=== PATIENT | male | born 1960 | race Caucasian/White ===

== ENCOUNTER 2023-12-28 22:25 | Inpatient (IN) | payer BC, SELFPAY ==
[2023-12-28 16:52] VITALS: BP 182/93
[2023-12-28 17:06] LABS: % Basophils 0.9 % (0-2); % Eosinophils 2.7 % (0-6); % Immature Granulocytes 0.2 % (0-0.5); % Lymphocytes 26.4 % (20.5-51.1); % Monocytes 9.6 % (1.7-9.3); % Neutrophils 60.2 % (42.2-75.2); Absolute Basophils 0.1 10^3/uL (0-0.2); Absolute Eosinophils 0.2 10^3/uL (0-0.7); Absolute Lymphocytes 2.4 10^3/uL (1.2-3.4); Absolute Monocytes 0.9 10^3/uL (0.1-0.6); Absolute Neutrophils 5.4 10^3/uL (1.4-6.5); Hematocrit 45.7 % (39.0-52.0); Hemoglobin 16.7 g/dL (13.0-18.0); Mean Corp Hgb Conc. 36.5 g/dL (33.0-37.0); Mean Corpuscular Hgb 32.1 pg (27.0-31.0); Mean Corpuscular Volume 87.7 fL (80.0-94.0); Mean Platelet Volume 9.1 fL (7.4-10.4); Nucleated Red Blood Cells % 0 % (-); Platelet Count 256 10^3/uL (130-400); Red Blood Cell Count 5.21 10^6/uL (4.70-6.10); Red Cell Dist. Width 12.6 % (11.5-14.5)
[2023-12-28 17:20] LABS: ALT (SGPT) 36 U/L (0-50); AST (SGOT) 23 U/L (17-59); Albumin 4.5 g/dl (3.5-5.0); Alkaline Phosphatase 81 U/L (38-126); Blood Urea Nitrogen 17 mg/dl (9-20); Calcium 9.8 mg/dl (8.4-10.2); Carbon Dioxide 27 mmol/L (22-30); Chloride 103 mmol/L (98-107); Glucose 301 mg/dl (70-99); Potassium 3.6 mmol/L (3.5-5.1); Sodium 141 mmol/L (135-145); Total Bilirubin 0.9 mg/dl (0.2-1.3); Total Protein 7.3 g/dl (6.3-8.2); eGFR > 60.00
[2023-12-28 17:31] LABS: Troponin I < 0.012 ng/ml
[2023-12-28 18:05] LABS: Lipase 365 U/L (23-300)
[2023-12-28 19:18] VITALS: BP 160/83
[2023-12-28] MEDS: NSS 1000 IV (19:21)
--- NOTE | 2023-12-28 19:22 | ED.GENMED ---
History of Present Illness
General
Chief Complaint: Chest Pain
Source: patient
Exam Limitations: none
Time Seen by Provider: 12/28/23 19:00
History of Present Illness
History of Present Illness:
This is a 63 year old male that comes in with multiple complaints. State that on Wednesday he started with this med abd cramping. States that this radiated around to his mid upper back. States that the pain has been constant but the intensity
changes. States that he also has low back pain and chest pain. States that he feels very tired. States that last night he had chills and he has felt occasionally lightheaded. Denies any fever, SOB, nausea, vomiting, diarrhea, headache, dizziness,
urinary burning.
Past History
Past History
ED Past Medical History: GERD, HTN and Other (Kidney stones, Pancreatitis)
ED Past Surgical History: Cholecystectomy, Urological (Removal of Kidney stone) and Other (Parotid mass removed, )
Social History
Tobacco: Former smoker
Alcohol: Occasional
Personal:
Living: with family
Review of Systems
Review of Systems
All Other Systems: ROS reviewed and negative except as documented in HPI and ROS
Constitutional: Reports chills; Denies fever
EENT: Reports no symptoms
Respiratory: Denies cough or trouble breathing
Cardiac: Reports chest pain
ABD/GI: Reports abdominal pain; Denies nausea, vomiting or diarrhea
: Reports no symptoms; Denies dysuria, frequency or urgency
Musculoskeletal: Reports no symptoms
Skin: Reports no symptoms
Neurological: Reports other (Lightheaded); Denies dizzy or headache
Psychiatric: Reports no symptoms
Phy Exam
General Physical Exam
General Presentation: well appearing and no apparent distress
General age: appears stated age
General Skin: warm and dry
General Habitus: normal
General Mental: alert
General Hydration: dry mucous membranes
ENT Exam
ENT Exam: TM's normal, pharynx normal and neck supple
Eye Exam
Eye Exam: EOMI
Cardiovascular Exam
Cardiovascular Exam: regular rate/rhythm, no edema, no murmur and normal peripheral pulses
Pulmonary Exam
Pulmonary Exam: lungs clear, no respiratory distress, no rales, chest non tender, no crackles, no rhonchi, no wheezing and no cough
Gastrointestinal Exam
Gastrointestinal Exam: normal bowel sounds, non tender, soft, no organomegaly, no pulsatile mass and non distended
Musculoskeletal Exam
Musculoskeletal Exam: full ROM and no edema
Skin Exam
Skin Exam: normal color, warm/dry, no rash and no petechia
Psychiatric Exam
Psychiatric Exam: normal mood/affect
Scores
Heart Score for Chest Pain Patients
STEMI patient?: Not applicable
Course
Orders/Labs/Results
Orders:
Orders
12/28/23 16:51
EKG [Electrocardiogram (*1)] Urgent
Reason for Study: Chest Pain
EKG- Treatment ONCE
12/28/23 17:01
CBC/With Diff [Complete Blood Count/With Diff] Urgent
CMP [Comprehensive Metabolic Panel] Urgent
Lipase Urgent
Troponin I Urgent
12/28/23 19:15
CT Abd/pelvis W Iv Cont Urgent
Comment:
Reason For Exam: Mid abd pain and left flank pain
0.9% Sodium Chloride 1000 ml [Nss] 1,000 ml IV BOLUS
12/28/23 19:46
Ketorolac [Toradol] 30 mg IV NOW STA
12/28/23 19:59
Troponin I Urgent
12/28/23 20:02
Urinalysis Reflex To Culture Urgent
Date Specimen was Collected: 12/28/23
Time Specimen was Collected: 20:00
Abnormal Lab Results
12/28/23 12/28/23
17:01 20:02
MCH 32.1 H pg
(27.0-31.0)
Absolute Monos (auto) 0.9 H 10^3/uL
(0.1-0.6)
Monocytes % 9.6 H %
(1.7-9.3)
Glucose 301 H mg/dl
(70-99)
Lipase 365 H U/L
(23-300)
Urine Glucose 3+ A
(Negative)
12/28/23 17:01
12/28/23 17:01
Hyperglycemia, Lipase slightly elevated Troponin <0.012, Urine negative for infection.
Vital Signs
Initial and Last Documented VS:
Initial Vital Signs
Temp Pulse Resp BP Pulse Ox
98.2 F 73 18 182/93 96
12/28/23 16:52 12/28/23 16:52 12/28/23 16:52 12/28/23 16:52 12/28/23 16:52
Last Documented Vital Signs
Temp Pulse Resp BP Pulse Ox
98.2 F 63 12 160/83 96
12/28/23 16:52 12/28/23 19:30 12/28/23 19:30 12/28/23 19:18 12/28/23 19:30
MDM/Problems Addressed
Differential Diagnosis Includes:
Pancreatitis, Renal calculus, UTI
MDM/Problems Addressed:
This is a 63 year old male that come in with c/o abd pain and mid back pain. States that this started on Wednesday and has been constant but the intensity changes. States that he had shaking chill last night and occasionally lightheaded.
Will get labs, CT scan and urine. Will also give IV fluids and then recheck patient blood sugar. States that they are watching his sugar and that he was on Steroids for 10 days which he stopped about 2 weeks ago.
Back into see patient. Explained that the CT also noted Mild pancreatitis. Will admit patient. Hospitalist notified.
Chronic conditions affecting care:
history of Pancreatitis and renal calculus
Acute Exacerbation and/or Progression of Chronic Illness:
Pancreatitis
*Radiology
Radiology exam reviewed: radiology read reviewed (CT-Findings suggesting mild pancreatitis in the appropriate clinical context. )
*Pulse Oximetry
Patient hypoxic: no
*EKG
Interpreted by ED Provider?: Yes
Heart Rate: 67
Rate: normal
Rhythm: sinus
[place]: normal axis
Interval: normal interval
QRS Pattern: normal QRS
Ischemia: no ischemia
*Rubber Stamp Dies Inspector Interpretation
Rate: normal
Heart Rate: 64
Rhythm: sinus
*Critical Care Note
Total Time (30-74mins, 75-104mins- exclusive of procedures): Not Applicable
ED Attending Note
-
Portions of this chart may have been created with voice recognition software.� Occasional wrong word or��sound alike� substitutions may have occurred due to the inherent limitations of voice recognition software.
Discharge Plan
Departure
Patient Disposition: Admit
Date of Disposition: 12/28/23
Time of Disposition: 21:24
Admit to: Med/Surg
Presentation/result/management discussed w/ accepting MD/DO: Hospitalist
Patient with high blood pressure during this ER visit?: Yes
Condition: Good
Covid-19: Not Applicable
Discharge Problem:
Pancreatitis, Abdominal pain
Prescriptions:
No Action
amlodipine-benazepril 1 CAPSULE capsule
1 cap PO DAILY
cetirizine 10 MG tablet
10 mg PO DAILY
polyethylene glycol 3350 17 GRAMS powder in packet
17 grams PO DAILYPRN PRN (Reason: constipation)
omega 3-hgo-qll-fish oil [Fish Oil] 1 EACH capsule
2 ea PO DAILY
Referrals:
NONE,* [Active] -
Interventions
Interventions:
*Risk Screen - Suicide Last Done: 12/28/23 16:52
*General Assessment Last Done: 12/28/23 16:52
*Neglect/Abuse Screening Last Done: 12/28/23 16:52
ED- Fall Risk Assessment Last Done: 12/28/23 19:00
BZ-Msnnbm-Zzqxxztgvv Assessment Last Done: 12/28/23 19:00
ED- Cardiac Assessment Last Done: 12/28/23 19:00
ED- Neurological Assessment Last Done: 12/28/23 19:00
Discharge Date and Time
Print Language: CAPE VERDEAN
[2023-12-28] MEDS: TORADOL 30 MG IV (19:48)
[2023-12-28 20:00] VITALS: BP 160/92
[2023-12-28 20:18] LABS: Urine Albumin Negative (Neg - Trace); Urine Bilirubin Negative (Negative); Urine Character Clear (Clear); Urine Color Yellow; Urine Glucose 3+ (Negative); Urine Ketone Negative (Negative); Urine Leukocyte Negative (Negative); Urine Nitrite Negative (Negative); Urine Occult Blood Negative (Negative); Urine Specific Gravity 1.015 (<1.030); Urine Urobilinogen Negative (Neg - 1+)
[2023-12-28 20:39] LABS: Troponin I < 0.012 ng/ml
[2023-12-28 21:00] VITALS: BP 143/98
[2023-12-28] MEDS: DILAUDID 0.5 MG IV (21:37)
--- NOTE | 2023-12-28 21:42 | HPS.HSE ---
Family Physician
-
Family Physician: Tony Reynoso
Chief Complaint
-
abdominal pain
History of Present Illness
HPI
63M HX Pancreatitis per 2018 CT AP, HX Kidney stones, s/p cholecystectomy seen at ER for abdominal pain:
Evaluation of Abdominal pain:
- started 3 days ago
- crampy in nature and constant
- never pain free but intensity is waxing and waning
- around epigastrium mid upper back
- Denied N/V/D
- ETOH exposure: had total 4 cock tail 3 days in a row before Sat at [employer] , Not a daily drinker
ROS
Denies any fever, SOB, urinary burning.
Medical History
Past Medical History
Past Medical History: Reports HTN and Other (Kidmey stones , Pancreatitis in 2018 )
Past Surgical History: Reports Cholecystectomy and Urological (Kidney stones removal )
Additional Past Surgical History:
Parotid mass removed
Social History
Tobacco: Former Smoker
Alcohol: Occasional
Drug: None
Personal:
Living: With Family
Family History
Family History: Not pertinent
Allergies / Home Medications
Allergies reflects when Allergies were last updated in [employer].
Home Medications with original date entered in [employer]
Allergy/Medication List:
Allergies
Allergy/AdvReac Type Severity Reaction Status Date / Time
levofloxacin [From Levaquin] Allergy Tendonitis Verified 12/28/23 16:51
Home Medications
amlodipine 10 mg-benazepril 20 mg capsule 1 cap PO DAILY 12/28/23
cetirizine 10 mg tablet 10 mg PO DAILY 12/28/23
ketoconazole 2 % shampoo 1 applic topical DAILYPRN PRN scalp/arms 12/28/23
omega 9-ghm-end-fish oil 1,000 mg (120 mg-180 mg) capsule (Fish Oil) 2 cap PO DAILY 12/28/23
tramadol 50 mg tablet 50 mg PO TID PRN mild pain 12/28/23
Review of Systems
-
Constitutional: Reports No Symptoms
EENT: Reports No Symptoms
Respiratory: Reports No Symptoms
Cardiac: Reports No Symptoms
Abdomen/GI: Reports Abdominal Pain; Denies Nausea, Vomiting, Diarrhea or Constipated
: Reports No Symptoms
Musculoskeletal: Reports No Symptoms
Skin: Reports No Symptoms
Neurological: Reports No Symptoms
Endocrine: Reports No Symptoms
Hematologic/Lymphatic: Reports No Symptoms
Psych: Reports No Symptoms
Physical Exam
Vital Signs
Vital Signs
Temp Pulse Resp BP Pulse Ox
98.2 F 63 12 160/83 96
12/28/23 16:52 12/28/23 19:30 12/28/23 19:30 12/28/23 19:18 12/28/23 19:30
Physical Exam
General: Well Developed, Well Nourished and No Apparent Distress
HEENT: NormoCephalic, Moist mucous membranes and Atraumatic
Respiratory: Clear
Cardiac: S1/S2 and Regular Rhythm; No Murmur or Rub
GI: Soft, Non Distended and Normal Bowel Sounds; No Organomegaly
Rectal: Deferred by Provider
Musculoskeletal: No Clubbing, No Cyanosis and No Edema
Skin: No Rash
Neuro: Nonfocal/grossly intact
Laboratory Results
-
12/28/23 17:01
12/28/23 17:01
Laboratory Results
Total Bilirubin 0.9 mg/dl (0.2-1.3) 12/28/23 17:01
AST 23 U/L (17-59) 12/28/23 17:01
ALT 36 U/L (0-50) 12/28/23 17:01
Alkaline Phosphatase 81 U/L (38-126) 12/28/23 17:01
Troponin I < 0.012 ng/ml 12/28/23 19:59
Lipase 365 U/L (23-300) H 12/28/23 17:01
Data Reviewed
-
CT Scan: Report Reviewed by me
Lab Data: Discussed with Physician
Old Records: Reviewed
Impression/Plan
-
Reviewed VS: Afebrile HR 60s 140/80 --> 180/90
Data
nl CBC
unremarkable BMP
BG 301
Unremarkable LFTs
Lipase 365
12/28/23 CT Abd/pelvis W Iv Cont
Diffuse hepatic steatosis.
Mild inflammatory change surrounding the pancreatic head. Findings suggesting mild pancreatitis in the appropriate context.
Gallbladder absent.
The spleen, kidneys, adrenal glands are within normal limits.
02/09/18 CT Abd/pelvis W Iv Cont
light enlargement of the head of the pancreas with stranding of the fat surrounding the head of the pancreas.
CT findings are most compatible with pancreatitis.
No CT evidence of pancreatic mass.
No evidence of focal fluid collection.
Status-post cholecystectomy.
No evidence of bile duct dilation.
No evidence for calcified bile duct calculus.
Diffuse fatty infiltration of the liver.
5-mm enhancing lesion in the superior right lobe of the liver, most likely a small hemangioma.
Last hospitalist admission:
ASSESSMENT & PLAN
Clinical and CT suggestive of acute pancreatitis with equivocal lipase
Idiopathic pancreatitis
HX cholecystectomy
POS ETOH exposure: had total 4 cock tail 3 days in a row before Sat at [employer] , Not a daily drinker
- NPO and LR IVF 200cc/H
- PRN IV Dilaudid and PRN anti emetics
- trend Lipase and LFTs
- held Benazepril
- avoid ETOH
- GI consult
Essential HTN on combo Amlodipine and Benazepril pill
- cont Amlodipine
- add IV Hydralazine PRN
HX GERD
- Empiric IV PPI for now
DVT Px: SCd
Code: Full
Ip MS
[2023-12-28] MEDS: LR 1000 IV (23:12)
[2023-12-28 23:13] VITALS: BP 151/80; BMI 29.3
--- NOTE | 2023-12-28 23:25 | PTCARENOTE ---
Received patient from ED via stretcher. Pt AAOX3. Pox: 96% RA. Patient denies pain at this time. Call thakur within reach. Plan of care ongoing.
[2023-12-29] MEDS: LR 1000 IV ×4 (04:00→18:34)
[2023-12-29] MEDS: DILAUDID 0.5 MG IV ×4 (04:36→22:58)
[2023-12-29 06:00] VITALS: BMI 29.3
[2023-12-29 06:49] LABS: Hematocrit 42.7 % (39.0-52.0); Hemoglobin 14.9 g/dL (13.0-18.0); Mean Corp Hgb Conc. 34.9 g/dL (33.0-37.0); Mean Corpuscular Hgb 31.8 pg (27.0-31.0); Mean Platelet Volume 9.6 fL (7.4-10.4); Platelet Count 214 10^3/uL (130-400); Red Blood Cell Count 4.69 10^6/uL (4.70-6.10); Red Cell Dist. Width 12.3 % (11.5-14.5); White Blood Cell Count 7.8 10^3/uL (4.8-10.8)
[2023-12-29 07:27] LABS: ALT (SGPT) 31 U/L (0-50); AST (SGOT) 19 U/L (17-59); Albumin 3.6 g/dl (3.5-5.0); Alkaline Phosphatase 78 U/L (38-126); Amylase 76 U/L (30-110); Blood Urea Nitrogen 10 mg/dl (9-20); Calcium 8.7 mg/dl (8.4-10.2); Carbon Dioxide 27 mmol/L (22-30); Chloride 106 mmol/L (98-107); Estimated Creatinine Clearance > 125 ml/min; Glucose 161 mg/dl (70-99); HDL Cholesterol 31 mg/dl; LDL Cholesterol, Calculated 42 mg/dl; Lipase 212 U/L (23-300); Potassium 3.2 mmol/L (3.5-5.1); Sodium 139 mmol/L (135-145); Total Bilirubin 1.4 mg/dl (0.2-1.3); Total Cholesterol 93 mg/dl (50-199); Total Protein 6.1 g/dl (6.3-8.2); Triglyceride 103 mg/dl (10-149); Very Low Density Lipoprotein 20 mg/dl (0-30); eGFR > 60.00
[2023-12-29 07:45] VITALS: BP 147/73
[2023-12-29] MEDS: NORVASC 10 MG PO (08:06)
--- NOTE | 2023-12-29 08:22 | CON.GI ---
Consultation
-
Date/Time Consultation Performed: 12/29/23
Performing Provider: Gadiel Davies MD
Reason for Consultation: abdominal pain
Medical History
Chief Complaint / HPI
Chief Complaint: abdominal pain
History of Present Illness:
The patient is a 63-year-old male with past medical history as noted presents emergency room with abdominal pain. He states that starting on Wednesday he has been noticing abdominal pain, which he describes in the epigastric with radiation to the
back, with some nausea no vomiting. He has been having fatigue denies any fevers or chills. He did have some alcohol recently [place] which is new for him, usually does not have any significant alcohol. He denies any excessive NSAIDs,
melena or hematochezia. After his episode of pancreatitis which is unclear etiology in 2018 he has been doing well with no recurrent symptoms. He has had a colonoscopy in [facility] which was unremarkable by report except for small polyp. He
denies any chest pain or shortness of breath.
Past Medical History
Past Medical History: HTN and Other (kidney stones, pancreatitis)
Past Surgical History: Other (parotid, CCY)
Social History
Tobacco: Former Smoker
Alcohol: Occasional
Family History
Family History: Reviewed & Not Pertinent
Allergies / Home Medications
Allergy/AdvReac Type Severity Reaction Status Date / Time
levofloxacin [From Levaquin] Allergy Tendonitis Verified 12/28/23 16:51
�Medication �Instructions �Recorded
amlodipine 10 mg-benazepril 20 mg 1 cap PO DAILY 12/28/23
capsule
cetirizine 10 mg tablet 10 mg PO DAILY 12/28/23
ketoconazole 2 % shampoo 1 applic topical DAILYPRN PRN 12/28/23
scalp/arms
omega 4-bqg-ceq-fish oil 1,000 mg 2 cap PO DAILY 12/28/23
(120 mg-180 mg) capsule (Fish Oil)
tramadol 50 mg tablet 50 mg PO TID PRN mild pain 12/28/23
Review of Systems
-
All other systems: A 12 pt ROS was Negative except as stated above in HPI
Vital Signs
Temp Pulse Resp BP Pulse Ox
98 F 61 16 147/73 96
12/29/23 07:45 12/29/23 08:06 12/29/23 07:45 12/29/23 08:06 12/29/23 07:45
Physical Exam
Exam
General: NAD
HEENT: MMM, anicteric, no lymphadenopathy
Heart: Regular, no murmurs
Lungs: CTA bilaterally
Abdomen: normal bowel sounds, mildly distended though soft, no tenderness, no rebound or guarding, no masses, bruits or ascites
Extremeties: no edema
Skin: no rashes
Results
WBC 7.8 10^3/uL (4.8-10.8) 12/29/23 05:39
Hgb 14.9 g/dL (13.0-18.0) 12/29/23 05:39
Hct 42.7 % (39.0-52.0) 12/29/23 05:39
MCV 91.0 fL (80.0-94.0) 12/29/23 05:39
Plt Count 214 10^3/uL (130-400) 12/29/23 05:39
Absolute Neuts (auto) 5.4 10^3/uL (1.4-6.5) 12/28/23 17:01
Sodium 139 mmol/L (135-145) 12/29/23 05:39
Potassium 3.2 mmol/L (3.5-5.1) L 12/29/23 05:39
Chloride 106 mmol/L (98-107) 12/29/23 05:39
Carbon Dioxide 27 mmol/L (22-30) 12/29/23 05:39
BUN 10 mg/dl (9-20) 12/29/23 05:39
Creatinine 0.6 mg/dL (0.7-1.3) L 12/29/23 05:39
Calcium 8.7 mg/dl (8.4-10.2) 12/29/23 05:39
Total Bilirubin 1.4 mg/dl (0.2-1.3) H 12/29/23 05:39
AST 19 U/L (17-59) 12/29/23 05:39
ALT 31 U/L (0-50) 12/29/23 05:39
Alkaline Phosphatase 78 U/L (38-126) 12/29/23 05:39
Amylase 76 U/L (30-110) 12/29/23 05:39
Lipase 212 U/L (23-300) 12/29/23 05:39
Diagnostic Image Results:
12/28/23 CT Abd/pelvis W Iv Cont
Diffuse hepatic steatosis.
Mild inflammatory change surrounding the pancreatic head. Findings suggesting mild pancreatitis in the appropriate context.
Gallbladder absent.
The spleen, kidneys, adrenal glands are within normal limits.
Prior GI Procedures:
EGD:
Colonoscopy:
Assessment / Plan
-
1. Pancreatitis: Consistent given symptoms and imaging with Minimal inflammation on CT scan, mildly elevated lipase, likely secondary to alcohol, mild and interstitial. He did have some signs of significant hemoconcentration on admission though
this is improved today, and is overall improving without any markers of severity. Triglycerides are normal, LFTs are normal making CBD stone very unlikely. Other structural abnormality including pancreatic divisum etc. seem unlikely. At this
point we will continue aggressive IV fluids, start clear liquid diet, and check MRI with MRCP.
-
-
Thank you for consultation and allowing me to participate in the patient's care. Please call the chief construction inspector GI physician during the after hours with any questions or concerns.
[2023-12-29] MEDS: FLUSH (NSS) 1 FLUSH IV ×2 (08:42→16:59)
--- NOTE | 2023-12-29 11:17 | W.PN.HOSP.TC ---
Addendum entered and electronically signed by Arturo Sweeney DO 12/29/23 13:51:
MRI abdomen completed and discussed findings with gastroenterology.
Dr. Davies recommends outpatient EUS and possible ERCP.
Advance diet as tolerated to low fat diet.
Anticipate discharge by tomorrow morning if he remains stable.
Original Note:
Today's Communication/Plan
-
Replete potassium
Clear liquid diet
Await MRI report
Assessment / Plan
Assessment / Plan
Gen-AAOx3, NAD
HEENT-NC, AT, anicteric, clear oral mm
Neck-supple
CV-reg, no M, +S1/S2
Lungs-clear B/L
Abd-soft, NT, ND
Ext-no edema
Musculoskeletal-no cyanosis, clubbing
Skin-warm and dry
Neuro-grossly non-focal
Psych-calm, cooperative
Acute pancreatitis -this would be his second episode of pancreatitis in his lifetime. Suspect related to alcohol use. He did have 4 alcoholic beverages over the span of 3 days prior to admission. Last episode of pancreatitis was 2017. Denies any
medication changes at home. Clinically appears stable. Start clear liquid diet as per GI.
MRI abdomen completed, report pending.
Hypokalemia -getting repleted.
Essential hypertension -stable.
GERD
Nephrolithiasis
Obesity due to excess calories
Full code
Anticipated Discharge: Within 24 hours
Subjective/Interval History
-
Date of Service: December 29, 2023
Patient seen and examined. Currently denies abdominal pain. Having some lower back pain related to MRI today.
Objective Data
-
Labs:
Laboratory Results
12/29/23
05:39
WBC 7.8
Hgb 14.9
Hct 42.7
Plt Count 214
Sodium 139
Potassium 3.2 L
Chloride 106
Carbon Dioxide 27
BUN 10
Creatinine 0.6 L
Glucose 161 H
Calcium 8.7
Total Bilirubin 1.4 H
AST 19
ALT 31
Alkaline Phosphatase 78
Vital Signs:
Vital Signs
Temp Pulse Resp BP Pulse Ox
98 F 61 16 147/73 96
12/29/23 07:45 12/29/23 08:06 12/29/23 07:45 12/29/23 08:06 12/29/23 07:45
I&O
12/28/23 12/29/23 12/30/23
06:59 06:59 06:59
Intake Total 1400 / 1400
Balance 1400 / 1400
Review of Systems
-
History Source: Patient
All other systems: Reviewed and negative
[2023-12-29] MEDS: KCL 270 MEQ IV (11:20)
[2023-12-29 12:08] VITALS: BP 118/65
[2023-12-29 15:05] VITALS: BP 145/83
--- NOTE | 2023-12-29 15:46 | W.PN.UPDATE ---
Update Note
Progress Note Update
I reviewed MRI results with patient and his . Will plan endoscopic ultrasound +/- ERCP as an outpatient in few weeks once acute inflammation has resolved.
--- NOTE | 2023-12-29 16:15 | PTCARENOTE ---
pt AAO x3, MCMANUS well, OOB in room/neumann, tonja well. VSS. On room air- pulse ox 96%. Abd soft, rounded, tonja clear liquid diet; to try low fat diet for dinner. Pt denies abd discomfort; c/o low mid-back pain at times; good effect with IV Dilaudid.
Voiding in BR without difficulty. IVF's RL @ 100 ml/hr infusing via Rt AC site without x of infiltration. KCL IV rider completed. Resting comfortably at present. Will continue to monitor.
--- NOTE | 2023-12-29 16:22 | CM ---
Alert awake oriented patient who lives with his Judy who lives in a 2 story home with 3 step to enter and 14 steps to bed and bathroom. He is independent in driving and in all activities of daily living.He was offered VN he declined need.
No VN hx / No SNF history
Pharmacy [facility]
PCP DR Breaux
PLAN Home Declined VN
[2023-12-29 23:40] VITALS: BP 161/85
[2023-12-30] MEDS: MELATONIN 5 MG PO (01:37)
[2023-12-30 05:38] VITALS: BMI 29.0
--- NOTE | 2023-12-30 06:49 | W.PN.GI.CBS2 ---
Today's Communication / Plan
-
Please see assessment and plan for details.
Assessment / Plan
-
1. Pancreatitis: Mild, interstitial, likely secondary to alcohol. MRI with possibility of small lesion in the head of the pancreas, though likely overcall. He is overall much improved. At this point will await morning labs, though if okay and
tolerating breakfast is okay to DC from a GI standpoint, we will plan outpatient endoscopic ultrasound +/- ERCP in a few weeks once resolution of acute inflammation.
Subjective
Subjective
Date of Service: December 30, 2023
Patient feeling better overall, tolerated diet, no vomiting, much improved abdominal pain, no fever or chills.
Objective
Data Reviewed
Laboratory Data:
Laboratory Results
12/29/23 05:39
Laboratory Results
Total Bilirubin 1.4 mg/dl (0.2-1.3) H 12/29/23 05:39
AST 19 U/L (17-59) 12/29/23 05:39
ALT 31 U/L (0-50) 12/29/23 05:39
Alkaline Phosphatase 78 U/L (38-126) 12/29/23 05:39
Amylase 76 U/L (30-110) 12/29/23 05:39
Lipase 212 U/L (23-300) 12/29/23 05:39
Vital Signs and I&O:
Vital Signs
Temp Pulse Resp BP Pulse Ox
98.6 F 66 18 161/85 93
12/29/23 23:40 12/29/23 23:40 12/29/23 23:40 12/29/23 23:40 12/29/23 23:40
I&O
12/28/23 12/29/23 12/30/23
06:59 06:59 06:59
Intake Total 1400 / 1400 3390 / 3390
Balance 1400 / 1400 3390 / 3390
Physical Exam
Physical Exam
General: NAD
Abdomen: normal bowel sounds, soft, no tenderness, no masses or bruits, no ascites
[2023-12-30 07:55] VITALS: BP 149/83
[2023-12-30 07:58] LABS: ALT (SGPT) 34 U/L (0-50); AST (SGOT) 20 U/L (17-59); Albumin 3.7 g/dl (3.5-5.0); Alkaline Phosphatase 74 U/L (38-126); Blood Urea Nitrogen 10 mg/dl (9-20); Calcium 8.9 mg/dl (8.4-10.2); Carbon Dioxide 27 mmol/L (22-30); Chloride 104 mmol/L (98-107); Estimated Creatinine Clearance > 125 ml/min; Glucose 152 mg/dl (70-99); Potassium 3.3 mmol/L (3.5-5.1); Sodium 137 mmol/L (135-145); Total Bilirubin 1.2 mg/dl (0.2-1.3); Total Protein 6.1 g/dl (6.3-8.2); eGFR > 60.00
[2023-12-30] MEDS: NORVASC 10 MG PO (08:27)
--- NOTE | 2023-12-30 11:15 | W.PN.HOSP.TC ---
Today's Communication/Plan
-
Replete potassium
Discharge
Assessment / Plan
Assessment / Plan
Gen-AAOx3, NAD
HEENT-NC, AT, anicteric, clear oral mm
Neck-supple
CV-reg, no M, +S1/S2
Lungs-clear B/L
Abd-soft, NT, ND
Ext-no edema
Musculoskeletal-no cyanosis, clubbing
Skin-warm and dry
Neuro-grossly non-focal
Psych-calm, cooperative
Acute pancreatitis -this would be his second episode of pancreatitis in his lifetime. Suspect related to alcohol use. He did have 4 alcoholic beverages over the span of 3 days prior to admission. Last episode of pancreatitis was 2017. Denies any
medication changes at home. Clinically appears stable. Tolerating low-fat diet.
MRI abdomen completed & report noted. Outpatient follow-up with GI for EUS/ERCP.
Hypokalemia -getting repleted. Check magnesium.
Essential hypertension -stable.
GERD
Nephrolithiasis
Obesity due to excess calories
Full code
Dispo -medically stable for discharge today. Updated at the bedside. Follow-up with PCP and GI.
31 minutes spent in discharge process.
Anticipated Discharge: Today
Subjective/Interval History
-
Date of Service: December 30, 2023
Patient seen and examined. Feeling much better. No complaints. Tolerating diet.
Objective Data
-
Labs:
Laboratory Results
12/30/23
06:41
Sodium 137
Potassium 3.3 L
Chloride 104
Carbon Dioxide 27
BUN 10
Creatinine 0.6 L
Glucose 152 H
Calcium 8.9
Total Bilirubin 1.2
AST 20
ALT 34
Alkaline Phosphatase 74
Vital Signs:
Vital Signs
Temp Pulse Resp BP Pulse Ox
99.3 F 62 18 149/83 94
12/30/23 07:55 12/30/23 07:55 12/30/23 07:55 12/30/23 07:55 12/30/23 08:00
I&O
12/29/23 12/30/23 12/31/23
06:59 06:59 06:59
Intake Total 1400 / 1400 3390 / 3390
Balance 1400 / 1400 3390 / 3390
Review of Systems
-
History Source: Patient
All other systems: Reviewed and negative
--- NOTE | 2023-12-30 11:18 | W.DS.TRANS ---
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
-
Discharge Instructions:
Discharge Diagnosis/Procedures Acute pancreatitis, hypokalemia
Diet Low Fiber,Low Cholesterol
Activity As tolerated
Driving Restrictions As prior to admission
Bathing Restrictions None
Instructions:
Stand-Alone Forms:
Changes to Home Medications: No
Discharge Medications:
DC Medications w/original date entered in [employer]
amlodipine 10 mg-benazepril 20 mg capsule 1 cap PO DAILY 12/28/23
cetirizine 10 mg tablet 10 mg PO DAILY 12/28/23
ketoconazole 2 % shampoo 1 applic topical DAILYPRN PRN scalp/arms 12/28/23
omega 9-pva-plm-fish oil 1,000 mg (120 mg-180 mg) capsule (Fish Oil) 2 cap PO DAILY 12/28/23
tramadol 50 mg tablet 50 mg PO TID PRN mild pain 12/28/23
Home Medication Changes
Pending Results: No
--- NOTE | 2023-12-30 11:22 | CM ---
MD entered order for discharge.
will drive him home .
Offered VN he declined need.
PLAN Home no needs
[2023-12-30] MEDS: KCL 40 MEQ PO (11:35)
[2023-12-30 11:41] LABS: Magnesium 1.9 mg/dl (1.6-2.3)
[2023-12-30 18:47] LABS: IgG Subclass 4 21 mg/dL (1-123)
[2023-12-30 19:54] LABS: CA 19-9 41 U/mL (<=35)
[2023-12-31 02:16] LABS: ANA, IgG Reflex to HEp-2 None Detected (None Detected)
== END 2023-12-30 12:37 | disposition home or self-care (01) | DRG 440 ==
LOC: 4 EAST ACU 22:25
PROVIDERS: Clinical Nurse Specialist Family Health; Emergency Medicine; ADMITTING PHYSICIAN Internal Medicine; ATTENDING PHYSICIAN Hospitalist; CONSULT PHYSICIAN Internal Medicine Gastroenterology; EMERGENCY PHYSICIAN Emergency Medicine; FAMILY PHYSICIAN Family Medicine
DX: K85.20 Alcohol induced acute pancreatitis without necrosis or infection (principal); K21.9 Gastro-esophageal reflux disease without esophagitis; I10 Essential (primary) hypertension; K76.0 Fatty (change of) liver, not elsewhere classified; D18.03 Hemangioma of intra-abdominal structures; E87.6 Hypokalemia; N20.0 Calculus of kidney; E66.09 Other obesity due to excess calories; Z68.29 Body mass index [BMI] 29.0-29.9, adult; Z90.49 Acquired absence of other specified parts of digestive tract; Z88.1 Allergy status to other antibiotic agents; Z87.442 Personal history of urinary calculi; Z87.891 Personal history of nicotine dependence
CPT/HCPCS: 74177; 74183; 80053; 80061; 81003; 82150; 82787; 83690; 83735; 84484; 85025; 85027; 86038; 86301; 93005; 96361; 96374; 96375; 99285; A9575; Q9967

== ENCOUNTER 2024-02-22 08:00 | Day surgery (SDC) | payer BC, SELFPAY ==
[2024-02-22 08:22] VITALS: BMI 29.8
[2024-02-22 08:23] VITALS: BP 133/78
[2024-02-22 10:37] VITALS: BP 134/78
[2024-02-22 10:45] VITALS: BP 109/62
[2024-02-22 11:00] VITALS: BP 128/85
== END 2024-02-22 11:30 | disposition home or self-care (01) ==
LOC: GI 08:00
PROVIDERS: ATTENDING PHYSICIAN Internal Medicine Gastroenterology
DX: K86.9 Disease of pancreas, unspecified (principal); K85.90 Acute pancreatitis without necrosis or infection, unspecified; R93.3 Abnormal findings on diagnostic imaging of other parts of digestive tract; K83.8 Other specified diseases of biliary tract; R93.5 Abnormal findings on diagnostic imaging of other abdominal regions, including retroperitoneum
CPT/HCPCS: 43237

== ENCOUNTER → 2024-05-24 08:52 | Outpatient (REF) | payer BC, SELFPAY | LOC: PAVMRI 08:52 | PROVIDERS: ATTENDING PHYSICIAN Internal Medicine Gastroenterology; FAMILY PHYSICIAN Family Medicine | DX: R93.3 Abnormal findings on diagnostic imaging of other parts of digestive tract (principal) | CPT/HCPCS: 74183; A9575 ==

== ENCOUNTER 2024-07-15 00:55 | Observation (INO) | payer BC, SELFPAY ==
[2024-07-14 19:43] VITALS: BP 161/96
[2024-07-14 19:57] LABS: % Basophils 1.5 % (0-2); % Eosinophils 5.1 % (0-6); % Immature Granulocytes 0.1 % (0-0.5); % Lymphocytes 38.8 % (20.5-51.1); % Monocytes 8.1 % (1.7-9.3); % Neutrophils 46.4 % (42.2-75.2); Absolute Basophils 0.1 10^3/uL (0-0.2); Absolute Eosinophils 0.5 10^3/uL (0-0.7); Absolute Lymphocytes 3.6 10^3/uL (1.2-3.4); Absolute Monocytes 0.7 10^3/uL (0.1-0.6); Absolute Neutrophils 4.3 10^3/uL (1.4-6.5); Hematocrit 45.8 % (39.0-52.0); Hemoglobin 16.7 g/dL (13.0-18.0); Mean Corp Hgb Conc. 36.5 g/dL (33.0-37.0); Mean Corpuscular Hgb 32.1 pg (27.0-31.0); Mean Corpuscular Volume 88.1 fL (80.0-94.0); Mean Platelet Volume 9.5 fL (7.4-10.4); Nucleated Red Blood Cells % 0 % (-); Platelet Count 266 10^3/uL (130-400); Red Cell Dist. Width 13.1 % (11.5-14.5); White Blood Cell Count 9.2 10^3/uL (4.8-10.8)
[2024-07-14 20:11] LABS: ALT (SGPT) 59 U/L (0-50); AST (SGOT) 34 U/L (17-59); Albumin 4.7 g/dl (3.5-5.0); Alkaline Phosphatase 87 U/L (38-126); Blood Urea Nitrogen 15 mg/dl (9-20); Calcium 9.6 mg/dl (8.4-10.2); Carbon Dioxide 25 mmol/L (22-30); Chloride 104 mmol/L (98-107); Glucose 182 mg/dl (70-99); Potassium 3.7 mmol/L (3.5-5.1); Sodium 140 mmol/L (135-145); Total Bilirubin 0.9 mg/dl (0.2-1.3); Total Protein 7.4 g/dl (6.3-8.2); eGFR > 60.00
[2024-07-14 20:29] LABS: Troponin I 0.021 ng/ml
[2024-07-14 23:42] VITALS: BP 158/83
--- NOTE | 2024-07-14 23:56 | ED.GENMED ---
History of Present Illness
General
Chief Complaint: Heart Rate Problem
Source: patient and spouse
Exam Limitations: none
Time Seen by Provider: 07/14/24 23:41
History of Present Illness
History of Present Illness:
See MDM
Past History
Past History
ED Past Medical History: GERD, HTN and Other (Kidney stones, Pancreatitis)
ED Past Surgical History: Cholecystectomy, Urological (Removal of Kidney stone) and Other (Parotid mass removed, )
Social History
Tobacco: Former smoker
Alcohol: Occasional
Personal:
Living: with family
Phy Exam
Physical Exam
Physical Exam:
See MDM
Course
Orders/Labs/Results
Orders:
Orders
07/14/24 19:37
EKG [Electrocardiogram (*1)] Urgent
Reason for Study: Palpitations
07/14/24 19:38
EKG- Treatment ONCE
07/14/24 19:49
Complete Blood Count/With Diff Urgent
Comprehensive Metabolic Panel Urgent
Troponin I Urgent
Abnormal Lab Results
07/14/24
19:49
MCH 32.1 H pg
(27.0-31.0)
Absolute Lymphs (auto) 3.6 H 10^3/uL
(1.2-3.4)
Absolute Monos (auto) 0.7 H 10^3/uL
(0.1-0.6)
Glucose 182 H mg/dl
(70-99)
ALT 59 H U/L
(0-50)
07/14/24 19:49
07/14/24 19:49
Vital Signs
Initial and Last Documented VS:
Initial Vital Signs
Temp Pulse Resp BP Pulse Ox
98.5 F 77 16 161/96 95
07/14/24 19:43 07/14/24 19:43 07/14/24 19:43 07/14/24 19:43 07/14/24 19:43
Last Documented Vital Signs
Temp Pulse Resp BP Pulse Ox
98.5 F 65 20 161/96 96
07/14/24 19:43 07/14/24 23:43 07/14/24 23:43 07/14/24 19:43 07/14/24 23:43
MDM/Problems Addressed
Differential Diagnosis Includes:
HPI and MDM Narrative:
64-year-old male presenting with intermittent palpitations. Over the past several days, patient becoming fatigued and weak. His Apple Watch is alerting him that his heart rate is in the 30s and that quickly go into the 130s. Patient states it
last for few minutes. His is a nurse and she was checking his pulse and she was concerned because she felt pauses. Patient denies prior history of A-fib but had talked with video tape duplicator in the past for intermittent tachycardia. He was
prescribed metoprolol to take as needed but he has not been taking it. He denies prior history of coronary artery disease.
On exam, he is well-appearing nontoxic. I am worried about the intermittent bradycardia and tachycardia without exertion. Will admit on telemetry for further evaluation and monitoring
Physical exam
General: Well appearing and non-toxic
HEENT: protecting airway
Neck: appears supple
CV: No evidence of cyanosis. Regular rate and rhythm
Resp: No accessory muscle use
Abd: Non-distended
Extremities: No deformities. No leg edema
Neuro: alert
Psych: Normal affect
Skin: Intact
Problems Addressed including Acute and Chronic Conditions affecting care:
1. Intermittent bradycardia and tachycardia
Acuity: acute
Prognosis: unstable
Details: Unsure about underlying A-fib versus sick sinus syndrome. Will admit for telemetry monitoring and workup
Differential Diagnosis (but not limited to): A-fib, sick sinus syndrome
Testing considered: Chest x-ray but denies chest pain shortness of breath
Drug therapy (if applicable): OTC meds, please see d/c instruction regarding Rx drugs
Amount and/or Complexity of Data Reviewed
Clinical info obtained from: Patient. states she palpates pauses in his heart rate
External data reviewed: N/A
Labs I independently reviewed (but not limited to): Troponin normal
Radiology: N/A
Pulse Ox: not hypoxic
EKG independently reviewed: Sinus rhythm, normal axis, no STEMI
Director It: Sinus rhythm with occasional PVCs
Critical Care: N/A
Risk of Complication:
Social Determinants of health: Good social support
Discussed with other providers: Hospitalist
Escalation of Care includes Admit/Obs: Given the intermittent bradycardia and tachycardia with symptoms, will admit for further evaluation
Occasional wrong word or 'sound a like' substitutions may have occurred due to the inherent limitations of voice recognition software. Read the chart carefully and recognize, using context, where substitutions have occurred.
*Critical Care Note
Total Time (30-74mins, 75-104mins- exclusive of procedures): Not Applicable
ED Attending Note
-
Portions of this chart may have been created with voice recognition software.� Occasional wrong word or��sound alike� substitutions may have occurred due to the inherent limitations of voice recognition software.
Discharge Plan
Departure
Patient Disposition: Admit
Date of Disposition: 07/14/24
Time of Disposition: 23:59
Admit to: Telemetry
Presentation/result/management discussed w/ accepting MD/DO: Hospitalist
Discharge Problem:
Symptomatic bradycardia
Prescriptions:
No Action
ketoconazole 2 % shampoo
1 applic TOPICAL DAILYPRN PRN (Reason: scalp/arms)
cetirizine 10 mg Tablet
10 mg PO DAILY
tramadol 50 mg Tablet
50 mg PO TID PRN (Reason: mild pain)
amlodipine-benazepril 10-20 mg Capsule
1 cap PO DAILY
omega 5-lhq-jyy-fish oil [Fish Oil] 1,000 mg (120 mg-180 mg) Capsule
2 cap PO DAILY
Referrals:
Tony Reynoso MD [Family Provider] -
Interventions
Interventions:
*Risk Screen - Suicide Last Done: 07/14/24 19:45
*Neglect/Abuse Screening Last Done: 07/14/24 19:45
Discharge Date and Time
Print Language: CYMRAES
[2024-07-15] VITALS (10 sets, daily range): BP systolic 125–155; BP diastolic 73–87; PULSE 62–69
--- NOTE | 2024-07-15 00:23 | HPS.HSE ---
Family Physician
-
Family Physician: Tony Reynoso
Chief Complaint
-
palpitations
History of Present Illness
This is a 64-year-old male who has a past medical history significant for hypertension, GERD who presents to the emergency department after having 3 nights of palpitations.
Patient reports being in usual state of health until about 3 nights ago when he developed palpitations and cold feelings pulse when he lies down to sleep. He reports that on his watch device he has transient bradycardic episode to the 40s and then
returned back to the 70s. His reportedly checked his pulse during one of the episodes and she reported a pulse that was in the 40s for a whole minute. Patient felt lightheaded. He had mild nausea. Denied having any chest pain or shortness
of breath. He denied any recent episodes of chest pain, shortness of breath, dyspnea on exertion, lower extremity swelling orthopnea or PND.
He is reported to have had a an episode of supraventricular tachycardia that was nonsustained in the past. Was given as needed metoprolol but he has only had to use that once or twice and not in several months. He denies smoking, tobacco use or
recreational drugs.
In the emergency department today he was afebrile, blood pressure was 160/90 with a pulse of 65 satting 97% on room air. ECG showed normal sinus rhythm at a rate of 76. Normal MA and QRS intervals. Normal QT. No ST elevation. Troponin negative
looking at the telemetry he had frequent PVCs but no evidence of for heart block or sinus pauses.
Medical History
Past Medical History
Past Medical History: Reports HTN
Past Surgical History: Reports Cholecystectomy and Other (Left carotid endarterectomy)
Social History
Tobacco: Non-smoker
Alcohol: Occasional
Drug: None
Personal:
Living: With Family
Employment: Employed
Family History
Family History: CAD, Cancer (Lung cancer) and Diabetes
Allergies / Home Medications
Allergies reflects when Allergies were last updated in [facility].
Home Medications with original date entered in [facility]
Allergy/Medication List:
Allergies
Allergy/AdvReac Type Severity Reaction Status Date / Time
levofloxacin [From Levaquin] Allergy Tendonitis Verified 02/22/24 08:19
Home Medications
amlodipine 10 mg-benazepril 20 mg capsule 1 cap PO DAILY 12/28/23
ketoconazole 2 % shampoo 1 applic topical DAILYPRN PRN scalp/arms 12/28/23
omega 7-ynt-pqw-fish oil 1,000 mg (120 mg-180 mg) capsule (Fish Oil) 2 cap PO DAILY 12/28/23
tramadol 50 mg tablet 50 mg PO TID PRN mild pain 12/28/23
Zyrtec 1 cap PO DAILY 07/15/24
metoprolol succinate 25 mg PO DAILY PRN palpatations 07/15/24
Review of Systems
-
History Source: Patient
Constitutional: Reports No Symptoms
EENT: Reports No Symptoms
Respiratory: Reports No Symptoms
Cardiac: Reports Palpitations
Abdomen/GI: Reports No Symptoms
: Reports No Symptoms
Musculoskeletal: Reports No Symptoms
Skin: Reports No Symptoms
Neurological: Reports No Symptoms
Endocrine: Reports No Symptoms
Hematologic/Lymphatic: Reports No Symptoms
Psych: Reports No Symptoms
Physical Exam
Vital Signs
Vital Signs
Temp Pulse Resp BP Pulse Ox
98.5 F 65 20 161/96 97
07/14/24 19:43 07/14/24 23:43 07/14/24 23:43 07/14/24 19:43 07/14/24 23:57
Physical Exam
General: Well Developed, Well Nourished, No Apparent Distress and Comfortable
HEENT: NormoCephalic, Anicteric, Moist mucous membranes and Atraumatic
Respiratory: Clear
Cardiac: S1/S2 and Regular Rhythm
GI: Soft, Non Tender, Non Distended and Normal Bowel Sounds
Rectal: Deferred by Provider
Genito-urinary: Deferred by me
Musculoskeletal: No Clubbing, No Cyanosis and No Edema
Skin: Warm
Neuro: AO x 3 and Nonfocal/grossly intact
Hematologic/Lymphatic: No Lymphadenopathy
Laboratory Results
-
07/14/24 19:49
07/14/24 19:49
Laboratory Results
Total Bilirubin 0.9 mg/dl (0.2-1.3) 07/14/24 19:49
AST 34 U/L (17-59) 07/14/24 19:49
ALT 59 U/L (0-50) H 07/14/24 19:49
Alkaline Phosphatase 87 U/L (38-126) 07/14/24 19:49
Troponin I 0.021 ng/ml 07/14/24 19:49
Data Reviewed
-
Medical Tests (Nuc Med, Echo, EKG etc): Image Personally Visualized and interpreted
Lab Data: Labs Reviewed by me
Old Records: Reviewed
Impression/Plan
-
IMPRESSION:
This is a 5-year-old male who sees Dr. Ronquillo of cardiology for hypertension presenting to ED with palpitations and concern for symptomatic bradycardia. Spouse reportedly checked his pulse tonight and it was in the 40s for about a minute. Watch
monitor related transient drop to 40s from 70s. ECG her with NSR and no hearblock or conduction delay. Telemetry in ED shows frequent ectopy. Patient had the palpitations with the presence of the ectopy.
PLAN:
Palpitations - Sinus lizz or pause versus symptomatic PVCs with delayed sinus recovery.
- admit to telemetry
- cycle cardiac enzymes
- check tsh and lyme titers
- echo
- orthostatics
- if sinus lizz and symptomatic, atropine
- if sinus pause, may need PPM
- if pvcs only, consider routine ischemic testing with stress tests
- cardiology consult
DVT PPX - lovenox sq
Code status - full code
[2024-07-15] MEDS: ATIVAN 0.5 MG PO (02:31)
[2024-07-15 03:44] LABS: Troponin I < 0.012 ng/ml
--- NOTE | 2024-07-15 07:43 | EDRN ---
Special Forces Specialist notified of ordered consult this am.
[2024-07-15] MEDS: LOTREL 10 MG/20 MG 1 CAPSULE PO (08:23)
--- NOTE | 2024-07-15 08:23 | CON.CAR ---
Consultation
Consultation Request
Date/Time Consultation Requested: July 15, 2024
Date/Time Consultation Performed: July 15, 2024
Requesting Provider: Hospitalist
Performing Provider: Bailey
Reason for Consultation: Bradycardia
Medical History
-
Chief Complaint: Bradycardia
History of Present Illness:
64-year-old male patient of Dr. Brent Reyes who presents as he was looking at his Apple Watch which read in the 40s and his who is a nurse took her stethoscope out and listen to her 's heartbeat and heard palpitations. On presentation
his actual heart rate is in the 60s to 80s with symptomatic PVCs and I suspect that his PVCs were not read completely by the Apple Watch algorithm. PVCs have been going on for approximately 1 to 2 weeks. He is managed with his outpatient
business analyst sales operations for hypertension related is not aware of his last cardiac testing. He does feel lightheaded with the PVCs. He is prescribed metoprolol as needed which she does not take. No chest pain or pressure, dyspnea dyspnea on exertion. 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 He does not note any cardiovascular symptoms at work.
who is a general production worker at [email or web address].
Past Medical History
Past Medical History: Arrhythmias and HTN
Past Surgical History: None
Social History
Tobacco: Non-Smoker
Alcohol: None
Drug: None
Personal:
Living: With Family
Employment: Employed
Family History
Family History: Reviewed & Not Pertinent
Allergies / Home Medications
Allergy/AdvReac Type Severity Reaction Status Date / Time
levofloxacin [From Levaquin] Allergy Tendonitis Verified 02/22/24 08:19
�Medication �Instructions �Recorded �Confirmed �Type
amlodipine 10 mg-benazepril 20 mg 1 cap PO DAILY 12/28/23 07/15/24 History
capsule
ketoconazole 2 % shampoo 1 applic topical DAILYPRN PRN 12/28/23 07/15/24 History
scalp/arms
omega 0-sgo-tjj-fish oil 1,000 mg 2 cap PO DAILY 12/28/23 07/15/24 History
(120 mg-180 mg) capsule (Fish Oil)
tramadol 50 mg tablet 50 mg PO TID PRN mild pain 12/28/23 07/15/24 History
Zyrtec 1 cap PO DAILY 07/15/24 07/15/24 History
metoprolol succinate 25 mg PO DAILY PRN palpatations 07/15/24 07/15/24 History
Review of Systems
-
All other systems: Negative unless noted
Cardiac: Palpitations
Physical Exam
Vital Signs
Temp Pulse Resp BP Pulse Ox
97.7 F 60 13 125/79 98
07/15/24 08:14 07/15/24 08:11 07/15/24 08:11 07/15/24 08:11 07/15/24 08:11
Lab Results
07/14/24 19:49
07/14/24 19:49
Troponin I < 0.012 ng/ml D 07/15/24 02:54
Physical Exam
General: Well Developed, Well Nourished and No Apparent Distress
HEENT: Normocephalic and Anicteric
Respiratory: Clear
Cardiac: S1/S2 and Irregular Rhythm
Breast: Deferred by me
GI: Soft, Non Tender and Non Distended
Rectal: Deferred by Provider
Musculoskeletal: No Clubbing and No Cyanosis
Skin: Warm and Dry
Neuro: Awake, Alert and Oriented
Hematologic/Lymphatic: No Lymphadenopathy
Psych: Calm
Impression / Plan
-
Impression:
Symptomatic PVCs
Hypertension
History of pancreatitis
Allergic rhinitis
Sinus rhythm
Recommend:
He appears stable for discharge
He can follow-up with his outpatient business analyst sales operations at [facility] cardiology
I sent a communication to his business analyst sales operations at [facility] cardiology to reach out to the patient on Wednesday to schedule outpatient ambulatory monitor, and if he has not had an echocardiogram or stress test he can have these in the near future through his
outpatient business analyst sales operations office
Please hydrate patient
Discussed increased hydration when the patient goes home
He can utilize as needed metoprolol if palpitations are worrisome from a symptomatic perspective
I reassured patient that his PVC should not be life-threatening and I would be happy to speak with his family if he had any questions
Data Reviewed
-
EKG: Tracing Personally Visualized and interpreted
Labs: Labs Reviewed by me
Old Records: Requested
--- NOTE | 2024-07-15 08:39 | W.PN.HOSP.TC ---
Today's Communication/Plan
-
d/c after 1L NS
Assessment / Plan
Assessment / Plan
Gen: NAD, AAOx3.
Eyes: EOMI, PERRLA, no scleral icterus.
Neck: supple.
CV: RRR, +S1/S2, no m/r/g.
Resp: CTAB, no rales, wheezes, or rhonchi.
Abd: +BS, soft, NT, ND
Skin: No rashes.
Neuro: CN 2-12 intact, non-focal.
Psych: Normal mood and affect.
Palpitations:
-Case discussed with Dr. Avalos. Likely patient's Apple Watch was not detecting his PVCs leading to erroneous bradycardia.
-trops NEG
-ECG: NSR @ 76, nl axis/intervals, no acute ST/TW changes
-hydrate with 1L NS
-medically cleared for d/c by cardiology with outpt cards follow up in 2 days
Essential HTN:
-cont Lotrel
Total time spent on d/c = 35 min. This included today's physical exam, progress note, review of laboratory and diagnostic data, preparation of discharge documents and prescriptions, and discussions about the pt's hospital course and discharge plan
with the patient and other medical billing clerk involved in the patient's care.
Anticipated Discharge: Today
Subjective/Interval History
-
Date of Service: July 15, 2024
Denies chest pain or shortness of breath.
Objective Data
-
Vital Signs:
Vital Signs
Temp Pulse Resp BP Pulse Ox
97.7 F 65 13 125/79 98
07/15/24 08:14 07/15/24 08:23 07/15/24 08:11 07/15/24 08:23 07/15/24 08:11
[2024-07-15 08:57] LABS: Glycohemoglobin (HgbA1c) 7.9 % (4.0-5.6)
--- NOTE | 2024-07-15 12:32 | W.DCSUMMARY ---
Discharge Summary
Discharge Data
Date of Admission: 07/15/24
Date of Discharge: 07/15/24
-
Pending Results: No
Hospital Course
Primary diagnosis:
Palpitations
Secondary diagnoses:
Essential hypertension
Consultants:
Cardiology
Imaging:
None
Hospital course: 64 y/o M who was admitted earlier today with a chief complaint of palpitations as outlined in the H&P done earlier today. Patient was seen in consultation by cardiology and the case discussed with Dr. Avalos. Likely patient's
Apple Watch was not detecting his PVCs leading to erroneous bradycardia. Troponins were negative. ECG: NSR @ 76, nl axis/intervals, no acute ST/TW changes. The patient received 1 L normal saline. He was medically cleared for d/c by cardiology
with outpatient cardiology follow up in 2 days.
Discharge Plan
-
Patient Disposition: Home (Routine Discharge)
Discharge Diagnosis/Procedures: Palpitations
Condition: Good
Diet: Low Cholesterol
Driving Restrictions: As prior to admission
Bathing Restrictions: None
Activity Restrictions/Additional Instructions:
You need to follow-up with your lawn care technician on July 17, 2024 to discuss stress test and echocardiogram.
Referrals:
Tony Reynoso MD [Family Provider] - in one week
Prescriptions:
Continued
ketoconazole 2 % shampoo
1 applic TOPICAL DAILYPRN PRN (Reason: scalp/arms)
tramadol 50 mg Tablet
50 mg PO TID PRN (Reason: mild pain)
amlodipine-benazepril 10-20 mg Capsule
1 cap PO DAILY
omega 6-mzs-giw-fish oil [Fish Oil] 1,000 mg (120 mg-180 mg) Capsule
2 cap PO DAILY
Zyrtec
1 cap PO DAILY
metoprolol succinate
25 mg PO DAILY PRN (Reason: palpatations)
Discharge Orders:
Discharge Patient (As Directed); Ordered 07/15/24
Ordered By: Damir Webb
Discharge Date and Time
Discharge Date/Time: 07/15/24 10:05
Print Language: TURKMEN
[2024-07-17 15:51] LABS: Lyme Antibody Screen, EIA Negative (Negative)
== END 2024-07-15 10:05 | disposition home or self-care (01) ==
LOC: ED 00:55
PROVIDERS: Emergency Medicine; ADMITTING PHYSICIAN Internal Medicine; ATTENDING PHYSICIAN Internal Medicine; CONSULT PHYSICIAN Internal Medicine Cardiovascular Disease; EMERGENCY PHYSICIAN Student in an Organized Health Care Education/Training Program; FAMILY PHYSICIAN Family Medicine
DX: R00.2 Palpitations (principal); R00.0 Tachycardia, unspecified; I49.3 Ventricular premature depolarization; K21.9 Gastro-esophageal reflux disease without esophagitis; I11.9 Hypertensive heart disease without heart failure; R42 Dizziness and giddiness; R11.0 Nausea; J30.9 Allergic rhinitis, unspecified; Z87.442 Personal history of urinary calculi; Z90.49 Acquired absence of other specified parts of digestive tract; Z88.1 Allergy status to other antibiotic agents; Z87.19 Personal history of other diseases of the digestive system; Z87.891 Personal history of nicotine dependence
CPT/HCPCS: 80053; 83036; 84443; 84484; 85025; 86618; 93005; 99283; G0378